=== PATIENT | male | born 1945 | race Asian ===

== ENCOUNTER 2017-09-15 07:43 | Day surgery (SDC) | payer OTHER, BC ==
[2017-09-08 11:25] VITALS: BMI 26.6
[2017-09-15] MEDS ORDERED: PROPOFOL 20 ML ONE ×2 (08:24)
[2017-09-15 09:08] VITALS: TEMP 97.8
[2017-09-15 09:34] VITALS: BP 125/81; PULSE 56
--- NOTE | 2017-09-16 11:53 | PATH ---
Surgical Pathology Report Patient Name: CHRISTIAN GARCIA [facility]. Rec. #: [id number] /Age/Gender: 1945 (Age: 72) / M Account: [id number] Location: [facility]-ENDOSCOPY Taken: 09/15/2017 Received: 09/15/2017 Reported: 09/16/2017 Physicians: Malcolm Garcia M.D. Specimen(s) Received A: RIGHT COLON POLYPECTOMY B: SPLENIC FLEXURE BIOPSY Clinical History Rule out colon cancer Final Diagnosis A. COLON, RIGHT, POLYPECTOMY AND BIOPSY: TUBULAR ADENOMA AND HYPERPLASTIC POLYP. B. COLON, SPLENIC FLEXURE, BIOPSY: HYPERPLASTIC POLYP. Comment: Recommend correlation with clinical findings and follow up as clinically indicated. Electronically Signed Harley Rodriguez M.D. Gross Description A. Received in formalin, labeled "right colon polypectomy, colon biopsy" are 2 lim, irregular portions of soft tissue measuring 0.4 and 0.5 cm. in greatest dimension. The base of the largest polyp is inked in blue then subsequently bisected. The specimens are entirely submitted in toto in one cassette. B. Received in formalin, labeled "splenic flexure" are 2 lim, irregular portions of soft tissue measuring 0.2 and 0.3 cm. in greatest dimension. The specimens are submitted in toto in one cassette. MILADIS/09/15/2017 dante/09/15/2017
== END 2017-09-15 09:40 | disposition home or self-care (01) ==
LOC: FASU-ENDO 07:43
PROVIDERS: ATTEND Internal Medicine Gastroenterology
PROC: 0DBK8ZX Excision of Ascending Colon, Via Natural or Artificial Opening Endoscopic, Diagnostic (ICD-10-PCS; principal; 2017-09-15 08:34)
PROC: 0DBL8ZX Excision of Transverse Colon, Via Natural or Artificial Opening Endoscopic, Diagnostic (ICD-10-PCS; 2017-09-15 08:34)
DX: Z12.11 Encounter for screening for malignant neoplasm of colon (principal); D12.2 Benign neoplasm of ascending colon; K63.5 Polyp of colon
CPT/HCPCS: 88305-TC

== ENCOUNTER 2022-08-11 08:43 | Day surgery (SDC) | payer OTHER, BC ==
[2022-08-10 09:10] VITALS: BMI 27.3
[2022-08-11 10:10] VITALS: TEMP 98
[2022-08-11 10:29] VITALS: RESP 16
[2022-08-11 10:30] VITALS: BP 126/69; PULSE 60
== END 2022-08-11 11:03 | disposition home or self-care (01) ==
LOC: FASU-ENDO 08:43
PROVIDERS: ATTEND Internal Medicine Gastroenterology
PROC: 0DBN8ZX Excision of Sigmoid Colon, Via Natural or Artificial Opening Endoscopic, Diagnostic (ICD-10-PCS; 2022-08-11)
PROC: 0DBK8ZX Excision of Ascending Colon, Via Natural or Artificial Opening Endoscopic, Diagnostic (ICD-10-PCS; principal; 2022-08-11 09:40)
DX: Z12.11 Encounter for screening for malignant neoplasm of colon (principal); D12.2 Benign neoplasm of ascending colon; K63.5 Polyp of colon; Z86.010 Personal history of colon polyps
CPT/HCPCS: 82962; 87426; 88305-TC